=== PATIENT | male | born 1970 | race Caucasian/White ===

== ENCOUNTER → 2019-05-12 10:38 | Outpatient (CLI) | payer OTHER, SELFPAY ==
[2019-05-03 11:18] VITALS: BMI 29.5
[2019-05-12 10:59] VITALS: PULSE 73; PULSE 81; PULSE 82; PULSE 84; PULSE 88; PULSE 89; PULSE 91; O2SAT 97; O2SAT 98
--- NOTE | 2019-05-12 13:42 | PCM.PSN.6M ---
PSN 6 Minute Walk Test - 6 Minute Walk Test 6 Minute Walk Test: 6 Minute Walk Test PSN:6-Minute Walk Test Start: 05/12/19 10:59 Freq: Status: Active Protocol: [id number] Document 05/12/19 10:59 SMB (Rec: 05/12/19 11:03 B [id number]) 6 Minute Walk Test Date Performed 05/12/19 Time Performed 10:48 Height 6 ft 1 in Weight: 99.79 kg Weight in Pounds 220.[address]: Gurwinder Cifuentes Assistive device used: None Pre-test Oxygen Delivery Method Room Air Pulse Ox (%) 98 Pulse Rate (60-100 beats/min) 73 Dyspnea Mario Scale (0-10) 0 Exertion Mario Scale (6-20) 11 1st minute Oxygen Delivery Method Room Air Pulse Ox (%) 98 Pulse Rate (60-100 beats/min) 82 2nd minute Oxygen Delivery Method Room Air Pulse Ox (%) 98 Pulse Rate (60-100 beats/min) 88 3rd minute Oxygen Delivery Method Room Air Pulse Ox (%) 98 Pulse Rate (60-100 beats/min) 82 4th minute Oxygen Delivery Method Room Air Pulse Ox (%) 98 Pulse Rate (60-100 beats/min) 89 5th minute Oxygen Delivery Method Room Air Pulse Ox (%) 98 Pulse Rate (60-100 beats/min) 81 6th minute Oxygen Delivery Method Room Air Pulse Ox (%) 97 Pulse Rate (60-100 beats/min) 91 Post-test Oxygen Delivery Method Room Air Pulse Ox (%) 98 Pulse Rate (60-100 beats/min) 84 Dyspnea Mario Scale (0-10) 0.5 Exertion Mario Scale (6-20) 14 Full Laps Walked 28 Partial Lap, Number of Tiles Walked 11 Total Distance Walked (ft) 1663 - Interpretation Interpretation: The patient was able to ambulate 1663 feet over the course of 6 minutes on room air with no assistive devices or breaks. The patient experienced no significant desaturation or tachycardia. These findings are consistent with a normal walking oximetry. - Recommendations Recommendations: No supplemental oxygen is indicated at this time.
== END ==
PROVIDERS: PCP Nurse Practitioner Family; Referring Provider Internal Medicine Critical Care Medicine; Visit Provider Internal Medicine Critical Care Medicine
DX: J44.9 Chronic obstructive pulmonary disease, unspecified (principal)
CPT/HCPCS: 94618

== ENCOUNTER → 2019-05-25 10:33 | Outpatient (CLI) | payer MEDICAID, SELFPAY ==
[2019-05-03 11:18] VITALS: BMI 29.5
--- NOTE | 2019-05-25 16:28 | PFTCOMP_ITS ---
COMPLETE PULMONARY FUNCTION TEST INTERPRETATION Brief HPI: Patient is a 49 year old male, currently under the care of myself, who presents to [facility] for complete pulmonary function tests secondary to diagnosis of COPD. Respiratory therapist reports good effort and reproducible results. Interpretation: Forced expiration spirometry shows a mild large airways obstructive ventilatory defect with an FEV1 of 109% predicted. There is no significant bronchodilator response by strict ATS criteria. Spirograms are of good quality and plateau slowly, indicating slowly emptying areas of the lungs. The respiratory flow volume loop shows decreased expiratory flow rates at all lung volumes consistent with airway obstruction. Lung volumes by body plethysmography show an elevated total lung capacity at 9.82 L, 131% predicted. FRC and RV are elevated out of proportion. Lung volume measurements are consistent with hyperinflation and air-trapping. Diffusion capacity by carbon monoxide is normal at 100% predicted. The airway resistance is normal. No previous pulmonary function tests were available for review. Impression: Irreversible mild large airways obstructive ventilatory defect resulting in air trapping with hyperinflation
== END ==
PROVIDERS: PCP Nurse Practitioner Family; Referring Provider Internal Medicine Critical Care Medicine; Visit Provider Internal Medicine Critical Care Medicine
DX: J44.9 Chronic obstructive pulmonary disease, unspecified (principal)
CPT/HCPCS: 94060; 94726; 94729